=== PATIENT | male | born 1995 | race Caucasian/White ===

== ENCOUNTER 2021-01-23 20:49 | Emergency (ER) | payer OTHER ==
[~2021-01-23] VITALS: Ht 180.3 cm; Wt 102.5 kg
[2021-01-23 21:10] VITALS: BP 137/82
[2021-01-23] MEDS ORDERED: PROPARACAINE OPHTH 0.5%, 15ML ONE (21:12)
[2021-01-23] MEDS ORDERED: FLUORESCEIN OPHTHALMIC 1 MG STRIP ONE (21:29)
[2021-01-23] MEDS ORDERED: PROPARACAINE OPHTH 0.5%, 15ML EACHEYE ONE (21:30)
[2021-01-23] MEDS ORDERED: FLUORESCEIN OPHTHALMIC 1 MG STRIP EACHEYE ONE (21:30)
--- NOTE | 2021-01-23 22:25 | NUR ---
PT AFFECTED EYE IRRIGATED WITH GALINDO LENSE
== END 2021-01-23 22:27 | disposition home or self-care (01) ==
LOC: ED 21:54
DX: S05.01XA Injury of conjunctiva and corneal abrasion without foreign body, right eye, initial encounter (principal); H10.211 Acute toxic conjunctivitis, right eye; X58.XXXA Exposure to other specified factors, initial encounter; Y93.89 Activity, other specified; Y92.89 Other specified places as the place of occurrence of the external cause; Y99.8 Other external cause status
CPT/HCPCS: 99283